=== PATIENT | female | born 1960 | race African-American/Black ===

== ENCOUNTER 2019-03-22 05:05 | Inpatient (IN) | payer OTHER ==
[~2019-03-22] VITALS: Ht 157.5 cm; Wt 76.2 kg
--- NOTE | 2019-03-22 05:20 | NUR ---
MS SOFTWARE QUALITY TEST ENGINEER NOTES RECEIVED PATIENT ACCOMPANIED BY SPOUSE, ALERT AND ORIENTED X 3, AMBULATORY. VERBALLY RESPONSIVE AND ABLE TO FOLLOW DIRECTIONS. BREATHING REGULAR AND UNLABORED ON ROOM AIR. IV INSERTED ON RIGHT AC G18 WITH GOOD BLOOD BACKFLOW, SECURED PROPERLY. BODY ASSESSMENT DONE, SKIN INTACT, DRY AND CLEAN. WITNESSED CONSENTS SIGNED BY PATIENT. MRSA SPECIMEN TAKEN FROM RIGHT NARES. ALL BELONGINGS CHECKED AND ACCOUNTED/SIGNED BY SPOUSE ON BEDSIDE. VITAL SIGNS CHECKED AND DOCUMENTED. CHECKLIST DONE. BED LOW AND LOCKED ON SEMI FOWLERS POSITION. CALL LIGHT IN REACH. WILL CONTINUE TO MONITOR.
[2019-03-22] MEDS ORDERED: ANESTHESIA TRAY IN PYXIS 1 EA TRAY MC ONE (05:50)
[2019-03-22] MEDS ORDERED: BUPIVACAINE MPF 0.5% W/EPI INJ 30 ML VIAL ONE (05:50)
[2019-03-22] MEDS ORDERED: BACITRACIN 50000 UNITS/VIAL ONE (05:50)
[2019-03-22] MEDS ORDERED: SCOPOLAMINE HBR 1 EA PATCH.TD72 TD ONE (06:11)
[2019-03-22] MEDS ORDERED: MIDAZOLAM HCL 2 MG/2ML VIAL ONE (06:11)
[2019-03-22] MEDS ORDERED: FENTANYL PF 100MCG/2ML AMPUL ONE (06:11)
--- NOTE | 2019-03-22 06:30 | NUR ---
MS RN NOTES PICKED-UP BY OR STAFF FOR LEFT SHOULDER ARTHROPLASTY. REMAINED ALERT AND ORIENTED X 3, ACCOMPANIED BY SPOUSE. WILL ENDORSE TO MORNING SHIFT FOR DEVIKA.
--- NOTE | 2019-03-22 07:00 | NUR ---
RN Notes: Patient at surgery at this time.
[2019-03-22] MEDS ORDERED: GENTAMICIN 80 MG/2 ML VIAL ONE (07:19)
[2019-03-22] MEDS ORDERED: TRANEXAMIC ACID 3,000 MG in SODIUM CHLORIDE IRRIG SOLUTION 70 ML IR ONE (07:30)
[2019-03-22] MEDS ORDERED: FLUMAZENIL 0.5 MG VIAL ONE (08:59)
[2019-03-22] MEDS ORDERED: TYLENOL 650 MG TABLET PO PRN (09:30)
[2019-03-22] MEDS ORDERED: SENOKOT 8.6 MG TABLET PO PRN (09:30)
[2019-03-22] MEDS ORDERED: DULCOLAX 10 MG/SUPP.RECT RC PRN (09:30)
[2019-03-22] MEDS ORDERED: HYDROCODONE/APAP 5/325MG 1 EACH TABLET PO PRN (09:30)
[2019-03-22] MEDS ORDERED: ZOFRAN 4mg/2ML IV PRN (09:30)
[2019-03-22] MEDS ORDERED: COLACE 250 MG CAPSULE PO PRN (09:30)
[2019-03-22] MEDS ORDERED: AMBIEN 5 MG TABLET PO PRN (09:30)
--- NOTE | 2019-03-22 09:57 | NUR ---
rn notes PATIENT BACK FROM SURGERY AT THIS TIME STILL DROWSE, ARROWS WHEN CALLED NAME OR TOUCHED, NO ACUTE RESPIRATORY DISTRESS, UNLABORED, V/S TAKEN BP 144/93, R-82, R-15, T-97.4, O2-96 ROOM AIR. PATIENT HAS A DRESSING ON LEFT SHOULDER INTACT, ALSO ON ARM SLING ON. PATIENT REFUSED PAIN AT THIS TIME. , DVT PUMP ON. APPLIED ICE ON LEFT SHOULDER. NEXT TO THE BED. ORDERS TAKEN AND ACRRIED OUR. CALL LIGHT WITHIN TO REACH. CONTINUED MONITORING.
[2019-03-22 09:59] VITALS: BP 144/93
[2019-03-22 10:30] VITALS: BP 137/89
[2019-03-22] MEDS: IV D5/0.45 NACL 1,000 ML IV PRN ×2 (10:31→19:20)
--- NOTE | 2019-03-22 10:32 | NUR ---
rn notes Infusing D51/2 125ml/hr on right antecubital area. Skin intact. Patient has no acute respiratory acute distress. Continue monitoring. Vital signs - BP:137/89 HR:81 SpO2: 96 RR: 15 Temp: 97.6
[2019-03-22] MEDS ORDERED: ONDANSETRON HCL/PF 4 MG/2 ML VIAL IVP PRN (11:00)
[2019-03-22] MEDS ORDERED: MORPHINE SULFATE INJ 4 MG/ML DISP.SYRIN IM PRN (11:00)
[2019-03-22] MEDS ORDERED: CLONIDINE HCL 0.1 MG TABLET PO PRN (11:00)
[2019-03-22] MEDS ORDERED: MAG HYDROX/AL HYDROX/SIMETH 30 ML UDC PO PRN (11:00)
[2019-03-22] MEDS ORDERED: MAGNESIUM HYDROXIDE 30 ML UDC PO PRN (11:00)
[2019-03-22] MEDS ORDERED: MENTHOL/CETYLPYRD (CEPACOL) 1 LOZ LOZENGE MM PRN (11:00)
[2019-03-22] MEDS ORDERED: NALOXONE HCL 0.4 MG/ML AMPUL IV PRN (11:00)
[2019-03-22] MEDS ORDERED: diphenhydrAMINE HCL 25 MG CAPSULE PO PRN (11:00)
[2019-03-22 11:30] VITALS: BP 144/93
--- NOTE | 2019-03-22 11:40 | NUR ---
RN Notes: Assisted patient with bed sheikh; Patient output 100 ml; Clear & yellow; Educated patient on how to use incentive spirometer.
[2019-03-22] MEDS ORDERED: Z GUARD REMEDY 2 OZ OINT TP PRN (13:30)
[2019-03-22] MEDS: MORPHINE SULFATE INJ 2 MG/ML DISP.SYRIN IV PRN ×3 (14:14→22:17)
[2019-03-22] MEDS: ANCEF 1 GM/50 ML D5W IV SCH ×4 (14:14→22:17)
--- NOTE | 2019-03-22 14:15 | NUR ---
RN Notes: Patient complaining of pain rated 6/10 on her left arm; Administering morphine sulphate 2mg/ml per patient request; Vital signs; BP-125/82, p-90, r-16. also administered Ancef 100 ml/hr on right Ac area intact. patient tolerated lunch well, no n/v at this time.
[2019-03-22 16:00] VITALS: BP 127/79
--- NOTE | 2019-03-22 16:01 | NUR ---
RN Notes: Patient resting in bed; States no pain; Assisted with bedpan; Continue to monitor.
[2019-03-22] MEDS: ASPIRIN 325 MG TABLET PO SCH (17:06)
[2019-03-22] MEDS: DOCUSATE SODIUM 100 MG CAPSULE PO SCH (17:06)
[2019-03-22] MEDS: HYDROCODONE/APAP 10/325MG 1 EA TABLET PO PRN (17:07)
--- NOTE | 2019-03-22 17:07 | NUR ---
rn notes administered narco 10/325 mg po prn for left shoulder pain 10/10 per pain scale. v/s taken bp-144/67, p-57, r-20, also administered scheduled medication.
--- NOTE | 2019-03-22 18:30 | NUR ---
RN Notes: Pain medication given effective; Patient tolerated dinner, 75%; Checked for circulation on the left hand; Patient still reports numbness in her fingers; Ice pack applied to left shoulder; Infusing D51/2NS at 125ml/hr on right AC IV (intact); Patient urinated using bedpan; present at bedside; Call light within reach; Endorse to [employer] nurse to follow plan of care.
--- NOTE | 2019-03-22 19:20 | NUR ---
rn notes administered morphine sulfate 2 mg/ml iv push; patient complained of left shoulder pain 10/10 per sliding scale. v/s taken BP:119/75RR:18 HR:84; Continue to monitor.
--- NOTE | 2019-03-22 19:25 | NUR ---
MS/RN NOTES RECEIVED PT. LYING IN BED. PT. IS AWAKE, ALERT AND ORIENTED X3. BREATHING EVEN AND UNLABORED ON ROOM AIR. NO SOB OR RESPIRATORY DISTRESS NOTED AT THIS TIME. PT. IS COMPLAINING OF LEFT SHOULDER PAIN. PT. RECENTLY RECEIVED PAIN MEDICATION. WILL CONTINUE TO MONITOR PAIN LEVEL AND EFFECTIVENESS OF MEDICATION. PT. WITH RIGHT AC 18 GAUGE PERIPHERAL IV PRESENT, PATENT AND INTACT ADMINISTERING TO PT. D5 1/2 NS @ 125 ML/HR. PT. PRESENT AT BEDSIDE. BED LOCKED AND IN LOWEST POSITION, SIDE RAILS UP X2, CALL LIGHT WITHIN REACH, WILL CONTINUE TO MONITOR.
[2019-03-22 20:35] VITALS: BP 119/75
[2019-03-22] MEDS: PANTOPRAZOLE 40 MG TABLET.DR PO SCH (22:17)
[2019-03-23] MEDS: HYDROCODONE/APAP 10/325MG 1 EA TABLET PO PRN ×2 (00:39→09:44)
[2019-03-23] MEDS: MORPHINE SULFATE INJ 2 MG/ML DISP.SYRIN IV PRN ×5 (03:57→21:24)
--- NOTE | 2019-03-23 06:24 | NUR ---
MS/RN NOTES PT. IS LYING IN BED RESTING. BREATHING EVEN AND UNLABORED ON ROOM AIR. NO SOB, RESPIRATORY DISTRESS OR COMPLAINTS OF PAIN NOTED AT THIS TIME. PT. WITH RIGHT AC 18 GAUGE PERIPHERAL IV PRESENT, PATENT AND INTACT ADMINISTERING TO PT. D5 1/2 NS @ 125 ML/HR. PT. WITH LEFT SHOULDER POST OP DRESSING PRESENT, CLEAN, DRY AND INTACT. NO BLEEDING OR DRAINAGE NOTED AT THIS TIME AND THROUGHOUT SHIFT. PT. WITH LEFT SHOULDER SLING PRESENT AND INTACT. ALL PT. NEEDS MET. BED LOCKED AND IN LOWEST POSITION, SIDE RAILS UP X2, CALL LIGHT WITHIN REACH, WILL ENDORSE TO DAYSHIFT NURSE FOR CONTINUITY OF CARE.
[2019-03-23 06:46] LABS: BASOPHILS % (AUTO) 0.2 % (0.0-2.0); EOSINOPHILS % (AUTO) 0.2 % (0.0-6.0); HEMATOCRIT 31 % (33-45); HEMOGLOBIN 9.9 g/dL (11.5-14.8); LYMPHOCYTES # (AUTO) 2.4 /CMM (0.8-4.8); LYMPHOCYTES % (AUTO) 30.4 % (20.0-44.0); MEAN CORPUSCULAR HGB CONC 32 g/dl (31.0-36.0); MEAN CORPUSCULAR VOLUME 61 fL (82-100); MONOCYTES # (AUTO) 0.8 /CMM (0.1-1.30); MONOCYTES % (AUTO) 10.7 % (2.0-12.0); NEUTROPHILS # (AUTO) 4.6 /CMM (1.8-8.9); NEUTROPHILS % (AUTO) 58.5 % (43.0-81.0); PLATELET COUNT (AUTO) 269 /CMM (150-450); RED BLOOD CELL COUNT(AUTO) 5.13 MIL/uL (4.0-5.2); WHITE BLOOD COUNT (AUTO) 7.9 K/uL (4.3-11.0)
[2019-03-23] MEDS: IV D5/0.45 NACL 1,000 ML IV PRN (06:51)
[2019-03-23 06:56] LABS: CREATININE 0.8 mg/dL (0.6-1.3); MAGNESIUM 1.7 mg/dL (1.8-2.4); PHOSPHORUS 3.3 mg/dL (2.5-4.9); POTASSIUM 3.3 mmol/L (3.5-5.1)
[2019-03-23 08:00] VITALS: BP 105/71
[2019-03-23] MEDS: ASPIRIN 325 MG TABLET PO SCH ×2 (08:41→16:20)
[2019-03-23] MEDS: DOCUSATE SODIUM 100 MG CAPSULE PO SCH ×2 (08:41→16:20)
--- NOTE | 2019-03-23 08:43 | NUR ---
RN Notes: Patient complained of pain in her left shoulder rated at 9/10. Administered PRN morphine sulfate 2mg/ml per patient's request. Vital signs - BP: 105/71 HR: 71 RR: 18 Temp: 98.7 SpO2: 95; Call light is within reach; Continue to monitor.
--- NOTE | 2019-03-23 09:44 | NUR ---
RN NOTES ADMINISTERED NARCO 10/325 MG PO PRN FOR LEFT SHOULDER PAIN 12/26 PER PATIENT REQUEST,V/S TAKEN BP 105/71, P-71, R-18. SEEN PATIENT BY Dr LOVELACE.
[2019-03-23] MEDS ORDERED: POTASSIUM CHLORIDE 20 MEQ TAB.PRT.SR PO SCH (10:30)
--- NOTE | 2019-03-23 11:21 | NUR ---
RN Notes: Patient ambulated to the bathroom with 2 person assistance. Pain medication given is tolerated well (rate of pain 5/10).
[2019-03-23] MEDS: Magnesium 1GM/D5W 100ML PREMIX 100 ML IV SCH ×2 (11:33→12:34)
[2019-03-23 11:51] LABS: IRON, SERUM 30 ug/dl (50-175); TOTAL IRON BINDING CAPACITY 217 ug/dl (250-450)
--- NOTE | 2019-03-23 13:27 | NUR ---
RN Notes: Patient stated pain in the left shoulder; Pain rated 9/10; Administered PRN morphine sulfate 2mg/ml per patient's request; Vital signs - BP: 110/63 HR: 73 RR: 20; Continue to monitor.
[2019-03-23 16:00] VITALS: BP_SYST 112; BP_DIAS 67; BP_DIAS 69
[2019-03-23] MEDS: FERROUS SULFATE (325 MG) 325 MG/TAB TABLET PO SCH (16:20)
--- NOTE | 2019-03-23 17:52 | NUR ---
RN Notes: Patient complained of pain in her left shoulder rated at 9/10; PRN morphine sulfate 2mg/ml administered per patient's request.
--- NOTE | 2019-03-23 19:06 | NUR ---
RN Notes: Patient resting in bed; Pain medication given was effective; Endorse to mini shifter nurse to follow care of plan.
--- NOTE | 2019-03-23 19:10 | NUR ---
MS/RN NOTES RECEIVED PT. LYING IN BED. PT. IS AWAKE, ALERT AND ORIENTED X3. BREATHING EVEN AND UNLABORED ON ROOM AIR. NO SOB, RESPIRATORY DISTRESS OR COMPLAINTS OF PAIN NOTED AT THIS TIME. PT. WITH RIGHT AC 18 GAUGE IV SALINE LOCK PRESENT, PATENT AND INTACT. BED LOCKED AND IN LOWEST POSITION, SIDE RAILS UP X2, CALL LIGHT WITHIN REACH, WILL CONTINUE TO MONITOR.
[2019-03-23 19:51] VITALS: BP 114/69
[2019-03-23] MEDS: PANTOPRAZOLE 40 MG TABLET.DR PO SCH (21:24)
[2019-03-24] MEDS: MORPHINE SULFATE INJ 2 MG/ML DISP.SYRIN IV PRN ×3 (00:25→13:05)
--- NOTE | 2019-03-24 06:26 | NUR ---
MS/RN NOTES PT. IS LYING IN BED RESTING. BREATHING EVEN AND UNLABORED ON ROOM AIR. NO SOB, RESPIRATORY DISTRESS OR COMPLAINTS OF PAIN NOTED AT THIS TIME. PT. WITH RIGHT AC 18 GAUGE IV SALINE LOCK PRESENT, PATENT AND INTACT. ALL PT. NEEDS MET. BED LOCKED AND IN LOWEST POSITION, SIDE RAILS UP X2, CALL LIGHT WITHIN REACH, WILL ENDORSE TO DAYSHIFT NURSE FOR CONTINUITY OF CARE.
[2019-03-24 06:27] LABS: CALCIUM, SERUM 8.3 mg/dL (8.5-10.1); CREATININE 0.8 mg/dL (0.6-1.3); POTASSIUM 3.9 mmol/L (3.5-5.1)
[2019-03-24] MEDS: HYDROCODONE/APAP 10/325MG 1 EA TABLET PO PRN (06:31)
--- NOTE | 2019-03-24 07:52 | NUR ---
MS/ RN NOTES PATIENT IS IN BED, ALERT AND ORIENTED X 4. BREATHING EVEN AND UNLABORED ON ROOM AIR. DENIES PAIN, NO SOB, NO RESPIRATORY DISTRESS. IV 18G ON RIGHT AC SALINE LOCK, CLEAN, DRY AND INTACT. SHOW NO REDNESS, NO INFILTRATION. ALL PT NEEDS MET. BED LOCKED AND IN LOWEST POSITION, WITH 2 SIDE RAILS UP. CALL LIGHT WITHIN REACH. WILL CONTINUE TO MONITOR.
[2019-03-24 08:00] VITALS: BP 106/68
[2019-03-24] MEDS: ASPIRIN 325 MG TABLET PO SCH (08:12)
[2019-03-24] MEDS: FERROUS SULFATE (325 MG) 325 MG/TAB TABLET PO SCH (08:12)
[2019-03-24] MEDS: DOCUSATE SODIUM 100 MG CAPSULE PO SCH (08:12)
[2019-03-24] MEDS ORDERED: Hydrocodone/Apap 10/325MG PO ×2 (11:09→11:51)
[2019-03-24] MEDS ORDERED: FERR325T28 PO ×3 (11:14→12:32)
[2019-03-24] MEDS ORDERED: OXYC-133 PO (12:32)
--- NOTE | 2019-03-24 16:02 | NUR ---
MS RN NOTES PLACED CALL TO PHARMACY [facility] ([phone]) TO VERIFY PATIENT PRESCRIPTION. PER PHARMACIST THEY HAVE NOT RECEIVED PRESCRIPTIONS BUT THEY HAVE SPOKEN TO DR. ESTRADA. SPOKE TO DR. ESTRADA REGARDING PRESCRIPTION VERBALIZED THAT HE HAS ALREADY SPOKEN TO PHARMACY AND HAVE UPDATED THEM.
--- NOTE | 2019-03-24 16:34 | NUR ---
MS RN NOTES PATIENT TO BE DISCHARGED TODAY, DISCHARGE INSTRUCTIONS AND EDUCATION PROVIDED TO PATIENT AND VERBALIZED UNDERSTANDING. ALL BELONGINGS COMPLETE, NO REPORT OF MISSING INVENTORY. PATIENT TO POWERHOUSE MECHANIC SUPERVISOR PRESCRIBED MEDICATIONS AT [facility].
--- NOTE | 2019-03-24 16:35 | NUR ---
MS AIR CARGO SPECIALIST NOTES PATIENT DISCHARGED 1635, MEDICALLY STABLE WITH EVEN UNLABORED RESPIRATION, NO SIGNS OF ACUTE DISTRESS. IV ON RAC REMOVED WITH CATHETER INTACT. ID BAND TAKEN OUT. NO NEW SKIN BREAKDOWNS. PATIENT TAKEN DOWN BY WHEELCHAIR AND TOOK A PRIVATE CAR DRIVEN BY HER . PATIENT UNDERSTOOD DISCHARGE INSTRUCTORS. DOCTOR AWARE OF DISCHARGE.
[2019-03-24] MEDS ORDERED: OXYC-128 PO (17:27)
== END 2019-03-24 16:35 | disposition home health service (06) | DRG 483 ==
LOC: DS 05:05 → MED 05:20 → DS 05:30 → MED 05:30
PROVIDERS: ADMIT Nurse Practitioner Acute Care; ATTEND Hospitalist
PROC: 0LS40ZZ Reposition Left Upper Arm Tendon, Open Approach (ICD-10-PCS; principal; 2019-03-22)
PROC: 0RRK0JZ Replacement of Left Shoulder Joint with Synthetic Substitute, Open Approach (ICD-10-PCS; principal; 2019-03-22)
DX: M19.012 Primary osteoarthritis, left shoulder (principal); D68.59 Other primary thrombophilia; Z74.09 Other reduced mobility; E83.42 Hypomagnesemia; E87.6 Hypokalemia; E66.9 Obesity, unspecified; Z68.30 Body mass index [BMI] 30.0-30.9, adult; D50.9 Iron deficiency anemia, unspecified
CPT/HCPCS: 36415; 80048-TC; 80061-TC; 83540-TC; 83735-TC; 84100-TC; 85025-TC; 86850-TC; 87081-TC; 88305-TC; 88311-TC; G0378; J0690; J1100; J1580; J2250; J2270; J2704; J3010; J3475; J3490; J7060